=== PATIENT | male | born 1985 | race Caucasian/White ===

== ENCOUNTER 2017-08-08 15:23 | Emergency (ER) | payer SELFPAY ==
[~2017-08-08] VITALS: Ht 172.7 cm; Wt 80.5 kg
[2017-08-08 15:24] VITALS: BP 131/80; PULSE 80; RESP 18; TEMP 98.6; O2SAT 96
[2017-08-08] MEDS ORDERED: WELLTAB39 PO (16:06)
[2017-08-08] MEDS ORDERED: PRED10PA PO (16:28)
[2017-08-08] MEDS ORDERED: DEXAMETHASONE SOD PHOS 4 MG/ML VIAL IM ONE (16:30)
--- NOTE | 2017-08-08 16:33 | PD ---
HPI Chief Complaint: Skin Problem Time Seen by Provider: 16:27 Travel History International Travel<30 days: No Contact w/Intl Traveler<30days: No Traveled to known affect area: No History of Present Illness HPI 32-year-old male here for evaluation of rash. 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 He reports that he has been exposed to poison marissa in the past and this feels similar. He reports pruritus, only mildly relieved by taking 2 tablets of Benadryl prior to arrival. He reports that in the past prednisone as worked quite well to resolve his symptoms and a expedient fashion. He denies any swelling to lips, tongue, throat, shortness of breath. He has no other complaints at this time. [facility] Social History Alcohol Use: No Tobacco Use: Yes Allergies-Medications (Allergen,Severity, Reaction): Coded Allergies: sulfamethoxazole (Unverified Adverse Reaction, Severe, SKIN BURNING, ) trimethoprim (Unverified Adverse Reaction, Severe, SKIN BURNING, 08/08/17) Reported Meds & Prescriptions Reported Meds & Active Scripts Active Reported Wellbutrin Xl 24 HR (Bupropion HCl) 300 Mg Tab 300 Mg PO DAILY Review of Systems Except as stated in HPI: all other systems reviewed are Neg Physical Exam Narrative GENERAL: Well-developed well-nourished male in no acute distress SKIN: Warm and dry. Papular vesicular rash noted on the face, anterior torso and upper extremities. HEAD: Atraumatic. Normocephalic. EYES: Pupils equal and round. No scleral icterus. No injection or drainage. ENT: No nasal bleeding or discharge. Mucous membranes pink and moist. NECK: Trachea midline. No JVD. CARDIOVASCULAR: Regular rate and rhythm. No murmur appreciated. RESPIRATORY: No accessory muscle use. Clear to auscultation. Breath sounds equal bilaterally. GASTROINTESTINAL: Abdomen soft, non-tender, nondistended. Hepatic and splenic margins not palpable. MUSCULOSKELETAL: No obvious deformities. NEUROLOGICAL: Awake and alert. No obvious cranial nerve deficits. Motor grossly within normal limits. Normal speech. Data Data Last Documented VS Vital Signs Date Time Temp Pulse Resp B/P (MAP) Pulse Ox O2 Delivery O2 Flow Rate FiO2 08/08/17 15:24 98.6 80 18 131/80 (97) 96 Room Air Orders Orders Dexamethasone Inj (Decadron Inj) (08/08/17 16:30) MDM Medical Decision Making Medical Screen Exam Complete: Yes Emergency Medical Condition: Yes Medical Record Reviewed: Yes Differential Diagnosis Allergic contact dermatitis, irritant contact dermatitis, pityriasis rosea, other viral exanthem Narrative Course The patient's examination and history are consistent with allergic contact dermatitis. The patient will be given a dose of Decadron here and discharged with a prednisone taper. He is encouraged to continue using [id number]-[id number]-[id number] Benadryl as needed every 6 hours. Diagnosis Primary Impression: Allergic contact dermatitis Qualified Codes: L23.89 - Allergic contact dermatitis due to other agents Additional Instructions: Medication as prescribed. Avoid scratching. Use Benadryl every 6 hours for itching. Do not drive, drink alcohol or operate heavy machinery or climb ladders when taking Benadryl as an May cause sedation. Follow up with primary care as needed and return for any emergent medical conditions. Med/Other Pt SpecificInfo: Prescription(s) given Scripts Prednisone (21) 10 mg tab Dose Pack (Prednisone (21) 10 mg tab Dose Pack) 10 Mg Pack 10 MG PO DIRECTED for Inflammation, #1 DSPK 0 Refills Prov: Merline Up MD 08/08/17 Disposition: 01 DISCHARGE HOME Condition: Stable John Alfaro Aug 08, 2017 16:33
== END 2017-08-08 16:58 | disposition home or self-care (01) ==
LOC: NEPK 15:23
DX: L23.89 Allergic contact dermatitis due to other agents (principal); Z72.0 Tobacco use
CPT/HCPCS: 96372; 99284; J1100

== ENCOUNTER 2017-12-31 11:21 | Emergency (ER) | payer MEDICAID ==
[~2017-12-31 11:21] MED LIST: PRED10PA PO; WELLTAB39 PO
== END 2017-12-31 12:00 | disposition left against medical advice (07) ==
LOC: NED 11:21
DX: Z03.89 Encounter for observation for other suspected diseases and conditions ruled out (principal)
CPT/HCPCS: 99281